=== PATIENT | male | born 1995 | race Caucasian/White ===

== ENCOUNTER 2024-06-08 11:44 | Emergency (ER) | payer MEDICAID ==
[~2024-06-08] VITALS: Ht 175.3 cm; Wt 61.4 kg
[2024-06-08 12:18] VITALS: TEMP 98.7
[2024-06-08 12:52] LABS: BASOPHILS % (AUTO) 0.6 % (0.0-2.0); EOSINOPHILS % (AUTO) 0.2 % (1.0-6.0); HEMATOCRIT 41.3 % (41-53); HEMOGLOBIN 14.3 g/dL (13.5-17.5); LYMPHOCYTES # (AUTO) 2.9 K/uL (1.0-4.8); MEAN CORPUSCULAR HEMOGLOBIN 31.3 pg (26.0-34.0); MEAN CORPUSCULAR HGB CONC 34.7 G/dL (31.0-37.0); MEAN CORPUSCULAR VOLUME 90 fL (80-100); MONOCYTES % (AUTO) 9.7 % (2.0-9.0); NEUTROPHILS # (AUTO) 6.3 K/uL (1.8-7.7); NEUTROPHILS % (AUTO) 61.5 % (40.0-70.0); PLATELET COUNT (AUTO) 448 K/uL (150-450); RED BLOOD CELL COUNT(AUTO) 4.58 MIL/uL (4.50-5.90); RED CELL DISTRIBUTION WIDTH 16.4 % (11.5-14.5); WHITE BLOOD COUNT (AUTO) 10.2 K/uL (4.5-11.0)
[2024-06-08 13:00] LABS: ANION GAP 16 mmol/L (8-16); CALCIUM, TOTAL 8.7 mg/dL (8.8-10.5); CARBON DIOXIDE 21 mmol/L (22-29); CHLORIDE 101 mmol/L (98-107); CREATININE 0.99 mg/dL (0.60-1.30); GLOMERULAR FILTR. RATE CALC > 60 mL/min (>60); GLUCOSE,RANDOM 91 mg/dL (70-110); POTASSIUM 3.6 mmol/L (3.5-5.1); SODIUM SERUM 138 mmol/L (136-145); UREA NITROGEN, BLOOD 16 mg/dL (7-18)
[2024-06-08 13:13] LABS: ALCOHOL, BLOOD (SERUM) < 3 mg/dL (0-10)
[2024-06-08 13:26] LABS: COVID AG,FIA SOURCE NASAL SWAB
[2024-06-08 13:41] LABS: APPEARANCE,URINE HAZY (CLEAR); BILIRUBIN,URINE NEGATIVE (NEGATIVE); COLOR,URINE LIGHT YELLOW (YELLOW); GLUCOSE, URINE (UA) NEGATIVE (NEGATIVE); LEUKOCYTE ESTERASE ,URINE NEGATIVE (NEGATIVE); NITRATE,URINE NEGATIVE (NEGATIVE); OCCULT BLOOD,URINE NEGATIVE (NEGATIVE); PROTEIN,URINE NEGATIVE (NEGATIVE); SPECIFIC GRAVITIY, URINE 1.016 (1.003-1.030); UROBILINOGEN,URINE <=1.0 mg/dL (<=1.0)
[2024-06-08 13:50] LABS: ALCOHOL, URINE DRUG SCREEN NEGATIVE (NEGATIVE); AMPHET/METH SCREEN,URINE NEGATIVE (NEGATIVE); BARBITURATE SCREEN, URINE NEGATIVE (NEGATIVE); BENZODIAZEPINES SCREEN,URINE NEGATIVE (NEGATIVE); CANNABINOID SCREEN,URINE NEGATIVE (NEGATIVE); COCAINE SCREEN,URINE NEGATIVE (NEGATIVE); METHADONE SCREEN, URINE NEGATIVE (NEGATIVE); OPIATE SCREEN,URINE NEGATIVE (NEGATIVE); PHENCYCLIDINE SCREEN,URINE NEGATIVE (NEGATIVE)
[2024-06-08 14:06] LABS: SARS-COV2 (COVID) ANTIGEN,FIA Negative (Negative)
[2024-06-08] MEDS: SODIUM CHLORIDE 0.9% 1,000 ML IV ONE (15:30)
[2024-06-08] MEDS: ACETAMINOPHEN 325 MG TABLET PO ONE (16:00)
[2024-06-08 16:51] LABS: ACETAMINOPHEN < 2 mcg/mL (10-30)
[2024-06-08] MEDS: LORazepam 1 MG TABLET PO ONE (17:20)
[2024-06-08] MEDS: KETOROLAC TROMETHAMINE 30 MG/ML VIAL IVP ONE (17:21)
[2024-06-08 18:40] VITALS: BP 128/68; PULSE 87; RESP 18; O2SAT 100
== END 2024-06-08 19:59 | disposition home or self-care (01) ==
LOC: EMS 11:47
DX: T41.0X1A Poisoning by inhaled anesthetics, accidental (unintentional), initial encounter (principal); R51.9 Headache, unspecified; F12.90 Cannabis use, unspecified, uncomplicated; F15.90 Other stimulant use, unspecified, uncomplicated; R07.89 Other chest pain; Z00.8 Encounter for other general examination; Z20.822 Contact with and (suspected) exposure to COVID-19; Y92.89 Other specified places as the place of occurrence of the external cause
CPT/HCPCS: 99284; 96374; 96361; 87426; 80048; 81003; 85025; 36415; 83921; 93005; 80307; J1885; G0481; J7030; G0480

== ENCOUNTER 2024-06-21 19:02 | Emergency (ER) | payer MEDICAID ==
[~2024-06-21] VITALS: Ht 165.1 cm; Wt 56.0 kg
[~2024-06-21 19:02] MED LIST: AMLO-257 PO; RISP-32 PO; SERT-439 PO
[2024-06-21] MEDS: DiphenhydrAMINE HCL 50 MG/ML VIAL IM ONE (22:05)
[2024-06-21 23:50] VITALS: BP 136/84; PULSE 85; RESP 16; TEMP 98.5; O2SAT 98
== END 2024-06-21 23:54 | disposition home or self-care (01) ==
LOC: EMS 19:02
DX: G25.9 Extrapyramidal and movement disorder, unspecified (principal); F12.90 Cannabis use, unspecified, uncomplicated; F20.9 Schizophrenia, unspecified; Z79.899 Other long term (current) drug therapy
CPT/HCPCS: 99283; 96372; J1200

== ENCOUNTER 2024-06-24 18:08 | Emergency (ER) | payer MEDICAID ==
[~2024-06-24] VITALS: Ht 170.2 cm; Wt 61.4 kg
[2024-06-24 18:16] VITALS: BP 111/57; PULSE 92; RESP 19; TEMP 98.9; O2SAT 100
[2024-06-24] MEDS: LORazepam 2 MG TABLET PO ONE (22:26)
== END 2024-06-24 22:31 | disposition home or self-care (01) ==
LOC: EMS 18:08
DX: F41.9 Anxiety disorder, unspecified (principal); R07.89 Other chest pain; F20.9 Schizophrenia, unspecified; F12.90 Cannabis use, unspecified, uncomplicated; F15.90 Other stimulant use, unspecified, uncomplicated; Z79.899 Other long term (current) drug therapy
CPT/HCPCS: 93005; 99283

== ENCOUNTER 2024-09-22 21:20 | Emergency (ER) | payer MEDICAID, OTHER ==
[~2024-09-22] VITALS: Ht 167.6 cm; Wt 65.9 kg
[~2024-09-22 21:20] MED LIST changes: -RISP-32 PO
[2024-09-22 21:37] VITALS: TEMP 98.4
[2024-09-23] MEDS: MELATONIN 5 MG TABLET PO ONE (00:37)
[2024-09-23] MEDS: LORazepam 2 MG TABLET PO ONE (00:37)
[2024-09-23 01:21] VITALS: BP 145/80; PULSE 88; RESP 15; O2SAT 99
== END 2024-09-23 01:21 | disposition home or self-care (01) ==
LOC: EMS 21:20
DX: F41.9 Anxiety disorder, unspecified (principal); F20.9 Schizophrenia, unspecified; F12.90 Cannabis use, unspecified, uncomplicated; I10 Essential (primary) hypertension; Z79.899 Other long term (current) drug therapy
CPT/HCPCS: 99283

== ENCOUNTER 2024-11-08 11:02 | Emergency (ER) | payer OTHER ==
[~2024-11-08] VITALS: Ht 170.2 cm; Wt 75.0 kg
[2024-11-08 11:08] VITALS: BP 103/88; PULSE 60; RESP 18; TEMP 98.2; O2SAT 99
[2024-11-08] MEDS ORDERED: TRAZ-252 PO (11:08)
[2024-11-08] MEDS ORDERED: IBUP-1492 PO (13:04)
== END 2024-11-08 13:11 | disposition home or self-care (01) ==
LOC: EMS 11:14
DX: M25.571 Pain in right ankle and joints of right foot (principal); F41.9 Anxiety disorder, unspecified; F20.9 Schizophrenia, unspecified; F12.90 Cannabis use, unspecified, uncomplicated; F15.90 Other stimulant use, unspecified, uncomplicated; Z79.899 Other long term (current) drug therapy; W01.0XXA Fall on same level from slipping, tripping and stumbling without subsequent striking against object, initial encounter; Y93.89 Activity, other specified; Y92.89 Other specified places as the place of occurrence of the external cause; Y99.8 Other external cause status
CPT/HCPCS: 99283